=== PATIENT | female | born 1945 | race Caucasian/White ===

== ENCOUNTER 2017-06-21 07:01 | Outpatient (CLI) | payer MEDICARE, OTHER ==
[~2017-06-21] VITALS: Ht 149.9 cm; Wt 45.5 kg
--- NOTE | ~2017-06-21 | HEMODYNAMI ---
PATIENT:BRISEYDA METCALF MEDICAL RECORD: [id number] : 43 LOCATION:[address] [facility] [id number] ADMISSION DATE: 06/21/17 Generatedon:06/22/20178:57 Patient name: BRISEYDA METCALF Patient #: [id number] SSN: : 1945 Date of study: 06/22/2017 Page: Of Hemodynamic Procedure Report Patient Data Patient Demographics Procedure consent was obtained First Name: BRISEYDA Gender: Female Last Name: DIXON : 1945 Middle Initial: L Age: 72 year(s) Patient #: [id number] Race: Unknown Additional ID: [id number] Contact details [address]: [address] [place] [address] State: [place] City: [place] Zip code: [address] Past Medical History Allergies: No known allergies Admission Admission Data Admission Date: 06/21/2017 Admission Time: 15:04 Room #: D2118 Lab Results Lab Result Date: 06/22/2017 Lab Result Time: 0:00 Biochemistry Name Units Result Min Max BUN mg/dl 18 --(---*)-- 7 18 Creatinine mg/dl 1 --(--*-)-- 0.6 1.3 CBC Name Units Result Min Max Hemoglobin g/dl 11.8 *-(----)-- 13.5 17.5 Procedure Procedure Types Cath Procedure PCI Procedure Coronary Stent Initial x2 Miscellaneous Procedures Moderate Sedation up to 45 minutes Procedure Description Procedure Date Procedure Date: 06/22/2017 Procedure Start Time: 8:03 Procedure End Time: 8:48 Procedure Staff Name Function Doron Cornelius MD Performing Physician Kailyn Cottrell RT Scrub Arlyn Perkins RN Nurse Angelica Rivera RT Monitor Procedure Data Cath Procedure Fluoroscopy Diagnostic fluoroscopy Total fluoroscopy Time: 11 time: 11 min min Diagnostic fluoroscopy Total fluoroscopy dose: 385 dose: 385 mGy mGy Contrast Material Contrast Material Type Amount (ml) Isovue 300 79 Entry Location Entry Primary Successful Side Size Upsize Upsize Entry Closure Succes sful Closure Location (Fr) 1 (Fr) 2 (Fr) Remarks Device Remarks Femoral Right 6 Fr Exoseal artery Short Estimated blood loss: 5 ml Procedure Complications No complications Procedure Medications Medication Administration Route Dosage Oxygen NC 2 l/min Lidocaine 2% added to field 20 Heparin Flush Bag added to field 2 bags (1000units/500ml NS) 0.9% NaCl I.V. 100 ml/hr Angiomax (bolus) I.V. 7 ml Angiomax Drip I.V. drip 15.8 ml/hr (250mg/50ml NS) (Standard) Versed I.V. 1 mg Fentanyl I.V. 50 mcg Nitroglycerin IC/IA I.C. 150 mcg Angiomax Drip 15.8 ml/hr (250mg/50ml NS) (Standard) Hemodynamics Rest HGB: 11.8 (g/dl) Heart Rate: 56 (bpm) Snapshots Pre Cath Intra NCS Post Cath Vital Signs Time Heart Resp SPO2 etCO2 [id number] NIBP (mmHg) Rhythm Pain Sedation Rate (ipm) (%) (mmHg) (mmHg) Status Level (bpm) 7:52:37 57 20 98 0 0 156/68(126) NSR 0 (11) 10(A) , No pain 7:57:04 53 18 98 0 0 155/64(134) NSR 0 (11) 10(A) , No pain 8:01:28 58 19 99 0 0 138/70(113) NSR 0 (11) 10(A) , No pain 8:05:52 58 21 98 0 0 142/66(116) NSR 0 (11) 10(A) , No pain 8:10:10 56 20 99 0 0 141/70(118) NSR 0 (11) 9(A) , No pain 8:14:28 57 19 99 0 0 136/66(119) NSR 0 (11) 9(A) , No pain 8:18:42 58 20 99 0 0 152/69(122) NSR 0 (11) 9(A) , No pain 8:23:04 58 19 99 0 0 154/67(124) NSR 0 (11) 9(A) , No pain 8:27:27 56 20 99 0 0 147/67(112) NSR 0 (11) 9(A) , No pain 8:31:46 59 18 99 0 0 136/65(113) NSR 0 (11) 9(A) , No pain 8:36:02 63 19 98 0 0 130/67(99) NSR 0 (11) 9(A) , No pain 8:40:14 60 20 98 0 0 135/70(108) NSR 0 (11) 10(A) , No pain 8:44:30 57 20 98 0 0 140/67(119) NSR 0 (11) 10(A) , No pain 8:49:50 56 24 98 0 0 148/68(121) NSR 0 (11) 10(A) , No pain Medications Time Medication Route Dose Verified Delivered Reason N otes Effectiveness by by 7:51:21 Oxygen NC 2 Doron Buffie used for l/min Ashli Perkins RN procedure 7:51:32 Lidocaine 2% added to 20ml Doron Doron for local field vial Ashli Cornelius MD anesthetic 7:51:39 Heparin Flush added to 2 Doron Doron used for Bag field bags Ashli Cornelius MD procedure (1000units/500ml NS) 7:51:48 0.9% NaCl I.V. 100 Doron Buffie Per physician ml/hr Ashli Perkins RN, MD 8:00:23 Versed I.V. 1 mg Doron Buffie for sedation Ashli Perkins RN, MD 8:00:29 Fentanyl I.V. 50 Doron Buffie for sedation mcg Ashli Perkins RN, MD 8:08:15 Angiomax (bolus) I.V. 7 ml Doron Buffie for 2 50mg/50 Ashli Perkins RN anticoagulation ml 8:09:26 Angiomax Drip I.V. drip 15.8 Doron Buffie for (250mg/50ml NS) ml/hr Ashli Perkins RN anticoagulation (Standard) 8:35:13 Nitroglycerin I.C. 150 Doron Doron for IC/IA mcg Ashli Cornelius MD vasodilation 8:48:35 Angiomax Drip I.V. drip- 15.8 Doron Doron for (250mg/50ml NS) discontinued ml/hr Ashli Cornelius MD anticoagulation (Standard) Procedure Log Time Note 7:32:28 Arlyn Perkins RN sent for patient. Start room use. 7:32:29 Time tracking: Regular hours 7:32:33 Plan of Care:Hemodynamics will remain stable., Cardiac rhythm will remain stable., Comfort level will be maintained., Respiratory function will remain adequate., Patient/ family verbilizes understanding of procedure., Procedure tolerated without complication., Recovers from procedure without complications.. 7:44:04 Patient received from PCU to CCL 1 Alert and oriented. Tansferred to table in Supine position. 7:44:05 Warm blankets applied, and phillip hugger turned on for patient comfort. 7:44:06 Correct patient and procedure confirmed by team. 7:44:07 Signed procedure consent form obtained from patient. 7:44:08 ECG and BP/O2 sat monitors applied to patient. 7:44:08 Full Disclosure recording started 7:51:21 Oxygen 2 l/min NC was administered by Arlyn Perkins RN; used for procedure; 7:51:21 Vital chart was started 7:51:32 Lidocaine 2% 20ml vial added to field was administered by Doron Cornelius MD; for local anesthetic; 7:51:39 Heparin Flush Bag (1000units/500ml NS) 2 bags added to field was administered by Doron Cornelius MD; used for procedure; 7:51:48 0.9% NaCl 100 ml/hr I.V. was administered by Arlyn Perkins RN; Per physician; 7:52:11 Baseline sample Acquired. 7:52:16 Rhythm: sinus rhythm 7:52:22 H&P Date Dictated: 06/22/2017 Within 30 days and on chart.. 7:52:24 Pre-procedure instructions explained to patient. 7:52:25 Pre-op teaching completed and patient verbalized understanding. 7:52:27 Family in patients room. 7:57:28 Is the patient allergic to Iodine/contrast media? No. 7:57:29 Was the patient premedicated? No 7:57:30 Is patient on blood thinner?Yes 7:57:33 ACC The patient was administered the following blood thiners within the last 24 hours: ACCPlavix 7:57:37 Patient diabetic? No. 7:57:42 Previous problem with sedation/anesthesia? No ? 7:57:49 Snore? No 7:57:50 Sleep apnea? No 7:57:59 Deviated septum? No 7:58:00 Opens mouth fully? Yes 7:58:01 Sticks out tongue? Yes 7:58:03 Airway obstruction? No ? 7:58:08 Dentures? Yes in tight 7:58:11 Pre procedure: right dorsailis pedis pulse 1+ Palpable, but thready & weak; easily obliterated 7:58:15 Pre procedure: left dorsailis pedis pulse 1+ Palpable, but thready & weak; easily obliterated 7:58:18 Patient pain scale 0/10 ?. 7:58:23 IV patent on arrival in left forearm with 0.9% NaCl at [facility]. 7:58:39 Lab results completed and on chart. 7:58:43 Right groin area was prepped with chlora-prep and draped in sterile fashion 7:58:44 Alarms reviewed by R. N. 7:58:45 Sharps counted by scrub and verified by R.N. 7:58:46 Physician arrived 7:58:47 --------ALL STOP TIME OUT------ 7:58:47 Final Timeout: patient, procedure, and site verified with staff and physician. All members of the team are in agreement. 7:58:49 Right groin site verified by team. 7:58:53 Physical assessment completed. ASA score P 2 - A patient with mild systemic disease as per Doron Cornelius MD. 7:58:57 Sedation plan: IV Moderate Sedation Versed, Fentanyl 7:59:04 Use device set Femoral PCI 7:59:05 Acist Syringe opened to sterile field. 7:59:06 Acist Hand Control opened to sterile field. 7:59:06 Bag Decanter opened to sterile field. 7:59:07 Medline Cath Pack opened to sterile field. 7:59:10 Terumo 6Fr [place] Sheath opened to sterile field. 7:59:10 St Uday 260cm J .035 wire opened to sterile field. 7:59:11 Merit BasixCompak Inflation Kit opened to sterile field. 7:59:12 Acist Manifold opened to sterile field. 7:59:12 Tegaderm 4 x 4 opened to sterile field. 8:00:23 Versed 1 mg I.V. was administered by Arlyn Perkins RN; for sedation; 8:00:29 Fentanyl 50 mcg I.V. was administered by Arlyn Perkins RN; for sedation; 8:03:14 Procedure started. 8:03:22 Local anesthetic to right femoral artery with Lidocaine 2% by Doron Cornelius MD.INITIAL ACCESS ONLY 8:03:36 A 6 Fr Short sheath was inserted into the Right Femoral artery 8:04:21 [place] Playroll Choice PT Extra Support 182cm wire opened to sterile field. 8:05:22 Zero performed for pressure channel P1 8:05:26 Zero performed for pressure channel P1 8:07:50 [place] Playroll Runway 6Fr ART 3.5 SH guide catheter opened to sterile field. 8:08:15 Angiomax (bolus) 7 ml I.V. was administered by Arlyn Perkins RN; for anticoagulation; 250mg/50 ml 8::26 Angiomax Drip (250mg/50ml NS) (Standard) 15.8 ml/hr I.V. drip was administered by Arlyn Perkins RN; for anticoagulation; 8:11:17 6 Fr art 3.5 sh guide catheter was inserted over the wire 8::21 RCA angiography performed. 8::26 Injector settings: Ml/sec: 3, Volume: 6, 8:11:34 choice pt wire advanced. 8:13:00 Wire advanced across lesion. 8:17:23 Inflation Number: 1 A [place]land RX 2.25 x 18 stent was prepped and advanced across the Mid RCA. The stent was deployed at 16 SHARITA for 0:10 (min:sec). 8:19:43 Stent catheter was removed intact over wire. 8:21:13 Inflation number: 2 A NC Euphora 2.5 x 12 balloon was prepped and advanced across the Mid RCA, then inflated to 16 SHARITA for 0:10 (min:sec). 8:21:53 Balloon removed over the wire. 8:25:05 Cordis 6FR XBLAD 3.5 guide catheter opened to sterile field. 8:25:06 Shah BMW [place] 2 J-tip 300cm 0.014 guide wir opened to sterile field. 8:25:19 Wire removed. 8:25:19 Guide catheter removed. 8:25:41 6 Fr xblad 3.5 guide catheter was inserted over the wire 8:28:25 LCA angiography performed. 8::28 Injector settings: Ml/sec: 3, Volume: 6, 8:28:35 bmw wire advanced. 8:32:56 Wire advanced across lesion. 8:35:13 Nitroglycerin IC/IA 150 mcg I.C. was administered by Doron Cornelius MD; for vasodilation; 8:36:59 Inflation number: 1 A Euphora 2.0 x 30 Balloon was prepped and advanced across the Prox LAD, then inflated to 10 SHARITA for 0:10 (min:sec). 8:37:13 Inflation number: 2 The Euphora 2.0 x 30 Balloon was reinflated across the Prox LAD, to 10 SHARITA for 0:10 (min:sec). 8:40:58 Balloon removed over the wire. 8:42:49 Inflation Number: 3 A Theo RX 2.5 x 26 stent was prepped and advanced across the Prox LAD. The stent was deployed at 12 SHARITA for 0:10 (min:sec). 8:44:04 Stent catheter was removed intact over wire. 8:44:08 Wire removed. 8:45:01 Guide catheter removed. 8:45:10 Cordis 6Fr Exoseal opened to sterile field. 8:45:22 Sheath removed intact; hemostasis achieved with Exoseal to the Right Femoral artery. 8:45:24 Procedure ended.(Physican Out) 8:46:41 Fluoroscopy time 11.00 minutes. 8:46:45 Fluoroscopy dose: 385 mGy 8:46:45 Flurop Dose total: 385 8:46:51 Contrast amount:Isovue 300 79ml. 8:46:53 Sharps counted by scrub and verified by R.N. 8:47:00 Insertion/operative site no bleeding no hematoma. 8:47:04 Post-op/insertion site Right Femoral artery dressed using a 4 x 4 and Tegaderm. 8:47:07 Post right femoral artery:stable 8:47:08 Post Procedure Pulses reassessed and unchanged 8:47:11 Post procedure rhythm: unchanged. 8:47:14 Estimated blood loss: 5 ml 8:47:15 Post procedure instruction explained to patient.Patient verbalizes understanding. 8:47:16 Patient needs reinforcement of post procedure teaching. 8:47:47 Procedure type changed to Cath procedure, PCI procedure, Coronary Stent Initial x2, Miscellaneous Procedures, Moderate Sedation up to 45 minutes 8:47:49 Procedure and supply charges have been captured, reviewed, submitted and are correct. 8:47:53 Procedure Complication : No complications 8:47:57 Vital chart was stopped 8:47:57 See physician's report for complete and final results. 8:48:35 Angiomax Drip (250mg/50ml NS) (Standard) 15.8 ml/hr I.V. drip- discontinued was administered by Doron Cornelius MD; for anticoagulation; 8:48:38 Report given to [facility]. 8:48:42 Patient transfered to [facility] with Stretcher. 8:48:44 Procedure ended. 8:48:44 Full Disclosure recording stopped 8:48:50 ACC-PCI Only Patient was given prescriptions, or instructed by Doron Cornelius MD to start/continue the following medications upon discharge: Plavix 8:48:52 End room use (Document Last) 8:49:57 Cook 18G 7cm Percutaneous Entry needle opened to sterile field. 8:55:57 Lab Result : Hemoglobin 11.8 g/dl 8:55:57 Lab Result : Creatinine 1 mg/dl 8:55:57 Lab Result : BUN 18 mg/dl 8:55:57 Hemodynamic formulas in Rest were re-calculated based on hemoglobin value from 06/22/2017 12:00:00 AM Intervention Summary Intervention Notes Time ActionType Lesion and Equipment Action# Pressure Duration Attributes Used 8:17:23 Place stent Mid RCA Rockland RX 1 16 00:10 2.25 x 18 stent 8:21:13 Inflate Mid RCA NC 2 16 00:10 balloon Euphora 2.5 x 12 balloon 8:36:59 Inflate Prox LAD Euphora 1 10 00:10 balloon 2.0 x 30 Balloon 8:37:13 Reinflate Prox LAD Euphora 2 10 00:10 balloon 2.0 x 30 Ball[address] 8:42:49 Place stent Prox LAD Rockland RX 3 12 00:10 2.5 x 26 stent Device Usage Item Name Manufacture Quantity Catalog Number Hospital Part Current Min imal Lot# / Charge Number Stock Stock Serial# Code Acist Acist 1 [id number] 071850 668193 20 Syringe Medical Systems Inc Acist Hand Acist 1 72209 447596 536533 207841 5 Control Social [employer] Systems DataPop Bag Decanter Microtek 1 2002S 740084 15790 730189 5 Scyron. Medline Cath Cardinal 1 [id number] 812150 34991 043921 5 Pack Health Terumo 6Fr Terumo 1 [id number] 204463 518352 871841 [address] [place] [address] St Uday 1 [id number] 271524 768067 241368 30 260cm J .035 wire [facility] 1 [id number] 935940 815267 627458 15 CipherApps Medical Inflation Kit Acist Acist 1 67054 923958 296957 060066 5 Omega Diagnostics Systems Inc Tegaderm 4 x 3M 1 [id number] 049792 972770 198991 5 4 [place] Sci [place] 1 [id number] 249970 648696 863073 5 Choice PT Scientific Extra Support 182cm wire [place] Sci [place] 1 [id number] 442340 558609 844717 [address] 6Fr Scientific ART 3.5 SH guide catheter Theo RX 2.25 Medtronic 1 [id number] 868631 0199367 488396 5 [id number] x 18 stent NC Euphora Medtronic 1 [id number] 757151 345958 388722 1 [id number] 2.5 x 12 balloon Cordis 6FR Cardinal 1 [id number] 959059 600394 499140 10 XBLAD 3.5 Health guide catheter Shah BMW Shah 1 [id number] 735366 105236 303238 5 [place] 2 Vascular J-tip 300cm 0.014 guide wir Euphora 2.0 Medtronic 1 [id number] 442087 105974 654797 5 [id number] x 30 Balloon Theo RX 2.5 Medtronic 1 [id number] 982422 6359446 862357 5 [id number] x 26 stent Cordis 6Fr Cardinal 1 [id number] 333039 059680 136790 10 Bladder [employer] 18G 7cm [facility] 1 [id number] 723463 12540 282750 5 Percutaneous Entry needle Signature Audit [place] Stage Time Signature Unsigned Intra-Procedure 06/22/2017 Angelica Rivera 8:56:57 AM RT(R) Signatures Monitor : Angeliac Rivera RT Signature : Date : Time : [facility] [address] [place] [address]
--- NOTE | ~2017-06-21 | HEMODYNAMI ---
PATIENT:BRISEYDA METCALF MEDICAL RECORD: [id number] : 43 LOCATION:D.CAT ADMISSION DATE: 06/21/17 Generatedon:06/21/20179:37 Patient name: BRISEYDA METCALF Patient #: [id number] SSN: : 1945 Date of study: 06/21/2017 Page: Of Hemodynamic Procedure Report Patient Data Patient Demographics Procedure consent was obtained First Name: BRISEYDA Gender: Female Last Name: DIXON : 1945 [facility] Initial: L Age: 72 year(s) Patient #: [id number] Race: Unknown Additional ID: [id number] Contact details [address]: [address] [place] [address] State: [place] City: [place] Zip code: [address] Past Medical History Allergies: No known allergies Admission Admission Data Admission Date: 06/21/2017 Admission Time: 7:01 Lab Results Lab Result Date: 06/21/2017 Lab Result Time: 0:00 Biochemistry Name Units Result Min Max Creatinine mg/dl 1 --(--*-)-- 0.6 1.3 CBC Name Units Result Min Max Hemoglobin g/dl 12.9 -*(----)-- 13.5 17.5 Procedure Procedure Types Cath Procedure Diagnostic Procedure [facility] LH w/Coronaries Peripheral Cath Diagnostic Procedure Cath Peripheral Four Vessel Arteriogram Renal Arteriogram Procedure Description Procedure Date Procedure Date: 06/21/2017 Procedure Start Time: 9:08 Procedure End Time: 9:37 Procedure Staff Name Function Doron Cornelius MD Performing Physician Gabriella Rocha RT Scrub Dilan Mooney RT Scrub Miguel Johnson RN Nurse Kailyn Cottrell RT Monitor Procedure Data Cath Procedure Fluoroscopy Diagnostic fluoroscopy Total fluoroscopy Time: 4.8 time: 4.8 min min Diagnostic fluoroscopy Total fluoroscopy dose: 222 dose: 222 mGy mGy Contrast Material Contrast Material Type Amount (ml) Isovue 300 85 Entry Location Entry Primary Successful Side Size Upsize Upsize Entry Closure Succes sful Closure Location (Fr) 1 (Fr) 2 (Fr) Remarks Device Remarks Femoral Right 5 Fr Exoseal artery Estimated blood loss: 5 ml Diagnostic catheters Device Type Used For End Catheter Placement Cordis 5Fr JL 4.0 Left Coronary Catheter (MP) Angiography Cordis 5Fr 3DRC Catheter Right Coronary (MP) Angiography Cordis 5Fr 3DRC Catheter Cervical carotid (MP) (common) arteriography Cordis 5Fr 3DRC Catheter Cervical carotid (MP) (common) arteriography Cordis 5Fr 3DRC Catheter Vertebral (neck (MP) and/or head) arteriography Cordis 5Fr 3DRC Catheter Renal (MP) arteriography without flush -selective Cordis 5Fr 3DRC Catheter Renal (MP) arteriography without flush -selective Cordis 5Fr Pigtail LV Angiography Catheter (MP) Procedure Complications No complications Procedure Medications Medication Administration Route Dosage 0.9% NaCl I.V. 100 ml/hr Oxygen NC 2 l/min Heparin Flush Bag added to field 2 bags (1000units/500ml NS) Lidocaine 2% added to field 20 Versed I.V. 1 mg Hemodynamics Rest HGB: 12.9 (g/dl) Heart Rate: 66 (bpm) Pressure Samples Time Site Value (mmHg) Purpose Heart Use Rate(bpm) 9:27 LV 153/-6,16 EDP 65 Gradients Valve Time Site Site Mean SEP/DFP Peak To Heart Use 1 2 (mmHg) (sec/min) Peak Rate (mmHg) (bpm) Aortic 9:28 LV AO 67 Snapshots Pre Cath Intra NCS Post Cath Vital Signs Time Heart Resp SPO2 etCO2 VO6nacq NIBP (mmHg) Rhythm Pain Sedation Rate (ipm) (%) (mmHg) (mmHg) Status Level (bpm) 8:59:11 66 15 100 0 0 173/78(139) NSR 0 (11) 10(A) , No pain 9:03:35 65 19 100 0 0 166/76(140) NSR 0 (11) 10(A) , No pain 9:07:55 63 21 100 0 0 163/74(132) NSR 0 (11) 10(A) , No pain 9:12:13 66 20 100 0 0 155/78(117) NSR 0 (11) 9(A) , No pain 9:16:35 68 19 100 0 0 153/76(126) NSR 0 (11) 9(A) , No pain 9:20:53 66 14 100 0 0 153/68(134) NSR 0 (11) 9(A) , No pain 9:25:11 66 21 100 0 0 145/68(117) NSR 0 (11) 9(A) , No pain 9:29:25 67 22 100 0 0 149/70(124) NSR 0 (11) 9(A) , No pain 9:34:37 66 25 100 0 0 154/82(129) NSR 0 (11) 9(A) , No pain Medications Time Medication Route Dose Verified Delivered Reason Notes Ef fectiveness by by 8:58:01 0.9% NaCl I.V. 100ml/hr Miguel Miguel Per Elizabeth Johnson physician RN RN 8:58:32 Oxygen NC 2 l/min Miguel Miguel Per Lorigan Lorigan physician RN RN 8:58:53 Heparin Flush added 2 bags Miguel Miguel used for Bag to Lorigan Elizabeth procedure (1000units/500ml field RN RN NS) 8:59:20 Lidocaine 2% added 20ml Miguel Miguel for local to vial Lorigan Lorigan anesthetic field RN RN 9:07:10 Versed I.V. 1 mg Miguel Miguel for Lorigan Lorigan sedation RN web content writer Log Time Note 8:45:13 Dilan FRANCOIS(R) sent for patient. Start room use. 8:50:18 Time tracking: Regular hours 8:50:22 Plan of Care:Hemodynamics will remain stable., Cardiac rhythm will remain stable., Comfort level will be maintained., Respiratory function will remain adequate., Patient/ family verbilizes understanding of procedure., Procedure tolerated without complication., Recovers from procedure without complications.. 8:50:26 Patient received from Pre/Post Procedure Room to CCL 1 Alert and oriented. Tansferred to table in Supine position. 8:50:28 Warm blankets applied, and phillip hugger turned on for patient comfort. 8:50:28 Correct patient and procedure confirmed by team. 8:50:31 Signed procedure consent form obtained from patient. 8:50:32 ECG and BP/O2 sat monitors applied to patient. 8:50:32 Full Disclosure recording started 8:51:22 Procedure type changed to Cath procedure, Diagnostic procedure, LHC, LHC w/Coronaries, Peripheral Cath Diagnostic Procedure, Cath Peripheral, Four Vessel Arteriogram, Renal Arteriogram 8:51:46 Rhythm: sinus rhythm 8:52:01 H&P Date Dictated: 06/20/2017 Within 30 days and on chart., H&P Addendum completed by physician on day of procedure. (MUST COMPLETE FOR ALL OUTPATIENTS). 8:52:02 Pre-procedure instructions explained to patient. 8:52:02 Pre-op teaching completed and patient verbalized understanding. 8:52:03 Family in waiting room. 8:52:06 Patient NPO since Midnight. 8:52:14 Patient allergic to No known allergies 8:52:16 Is the patient allergic to Iodine/contrast media? No. 8:52:17 Is patient on blood thinner?Yes 8:52:19 ACC The patient was administered the following blood thiners within the last 24 hours: ACCPlavix 8:52:21 Patient diabetic? No. 8:52:25 Previous problem with sedation/anesthesia? No ? 8:52:29 Snore? No 8:52:30 Sleep apnea? No 8:52:31 Deviated septum? No 8:52:32 Opens mouth fully? Yes 8:52:33 Sticks out tongue? Yes 8:52:35 Airway obstruction? No ? 8:52:36 Dentures? No ? 8:52:39 Pre procedure: right dorsailis pedis pulse 2+ Normal; easily identifiable; not easily obliterated 8:52:41 Patient pain scale 0/10 ?. 8:52:46 IV patent on arrival in left hand with 0.9% NaCl at KVO. 8:53:11 Lab Result : Creatinine 1 mg/dl 8:53:11 Lab Result : Hemoglobin 12.9 g/dl 8:53:14 Lab results completed and on chart. 8:53:18 Right groin area was prepped with chlora-prep and draped in sterile fashion 8:53:19 Alarms reviewed by R. N. 8:53:19 Sharps counted by scrub and verified by R.N. 8:53:24 Use device set Femoral Dx 8:53:25 Acist Syringe opened to sterile field. 8:53:25 Bag Decanter opened to sterile field. 8:53:26 Medline Cath Pack opened to sterile field. 8:53:26 Terumo 5Fr Benedict Sheath opened to sterile field. 8:53:27 St Uday 260cm J .035 wire opened to sterile field. 8:53:28 Acist Hand Control opened to sterile field. 8:53:28 Acist Manifold opened to sterile field. 8:53:29 Diagnostic Infinity 5Fr Multipack catheter opened to sterile field. 8:53:29 Tegaderm 4 x 4 opened to sterile field. 8:56:27 Vital chart was started 8:58:01 0.9% NaCl 100ml/hr I.V. was administered by Miguel Johnson RN; Per physician; 8:58:32 Oxygen 2 l/min NC was administered by Miguel Johnson RN; Per physician; 8:58:53 Heparin Flush Bag (1000units/500ml NS) 2 bags added to field was administered by Miguel Johnson RN; used for procedure; 8:59:20 Lidocaine 2% 20ml vial added to field was administered by Miguel Johnson RN; for local anesthetic; 8:59:56 Baseline sample Acquired. 9:03:18 Final Timeout: patient, procedure, and site verified with staff and physician. All members of the team are in agreement. 9:03:20 Right groin site verified by team. 9:03:23 Physical assessment completed. ASA score P 2 - A patient with mild systemic disease as per Doron Cornelius MD. 9:03:25 Sedation plan: IV Moderate Sedation Versed, Fentanyl 9:05:33 Zero performed for pressure channel P1 9:07:10 Versed 1 mg I.V. was administered by Miguel Johnson RN; for sedation; 9:08:13 Procedure started. 9:08:19 Local anesthetic to right femoral artery with Lidocaine 2% by Doron Cornelius MD.INITIAL ACCESS ONLY 9:10:06 A 5 Fr sheath was inserted into the Right Femoral artery 9:10:13 Cook 4Fr Micropuncture ([id number]) opened to sterile field. 9:12:07 A Cordis 5Fr JL 4.0 Catheter (MP) was advanced over the wire and used for Left Coronary Angiography. 9:15:05 Catheter exchanged over wire. 9:16:40 A Cordis 5Fr 3DRC Catheter (MP) was advanced over the wire and used for Right Coronary Angiography. 9:17:40 A Cordis 5Fr 3DRC Catheter (MP) was advanced over the wire and used for Cervical carotid (common) arteriography.Right--Selective 9:22:32 A Cordis 5Fr 3DRC Catheter (MP) was advanced over the wire and used for Cervical carotid (common) arteriography.Left--Selective 9:24:33 A Cordis 5Fr 3DRC Catheter (MP) was advanced over the wire and used for Vertebral (neck and/or head) arteriography.Left subclavian 9:25:26 A Cordis 5Fr 3DRC Catheter (MP) was advanced over the wire and used for Renal arteriography without flush -selective.Left 9:25:38 A Cordis 5Fr 3DRC Catheter (MP) was advanced over the wire and used for Renal arteriography without flush -selective.Right 9:25:57 Catheter exchanged over wire. 9:26:21 A Cordis 5Fr Pigtail Catheter (MP) was advanced over the wire and used for LV Angiography. 9:27:47 LV gram done using PHAM 9:27:48 LV hemodynamics recorded. 9:27:52 Injector settings: Ml/sec: 12, Volume: 8, 9:28:27 Catheter removed. 9:30:36 Sheath removed intact; hemostasis achieved with Exoseal to the Right Femoral artery. 9:30:37 Procedure ended.(Physican Out) 9:30:51 Cordis 5Fr Exoseal opened to sterile field. 9:31:02 Fluoroscopy time 04.80 minutes. 9:31:06 Fluoroscopy dose: 222 mGy 9:31:06 Flurop Dose total: 222 9:31:10 Contrast amount:Isovue 300 85ml. 9:31:11 Sharps counted by scrub and verified by R.N. 9:31:13 Insertion/operative site no bleeding no hematoma. 9:31:15 Post-op/insertion site Right Femoral artery dressed using a 4 x 4 and Tegaderm. 9:31:18 Post right femoral artery:stable, clean and dry 9:31:20 Post Procedure Pulses reassessed and unchanged 9:31:25 Post-procedure physical assessment completed. ASA score P 2 - A patient with mild systemic disease as per Doron Cornelius MD. 9:32:22 Post procedure rhythm: unchanged. 9:32:28 Estimated blood loss: 5 ml 9:32:29 Post procedure instruction explained to patient.Patient verbalizes understanding. 9:32:31 Patient needs reinforcement of post procedure teaching. 9:32:39 Procedure Complication : No complications 9:32:45 See physician's report for complete and final results. 9:34:13 Procedure and supply charges have been captured, reviewed, submitted and are correct. 9:37:08 Vital chart was stopped 9:37:10 Report given to Pre/Post Procedure Room. 9:37:12 Patient transfered to Pre/Post Procedure Room with Stretcher. 9:37:23 Procedure ended. 9:37:23 Full Disclosure recording stopped 9:37:26 End room use (Document Last) Device Usage Item Name Manufacture Quantity Catalog Hospital Part Current Minimal Lot# / Number Charge Number Stock Stock Serial# Code Acist Syringe Acist 1 [id number] 039142 028055 058735 20 [employer] Bag Decanter Microtek 1 2002S 272364 41591 154745 5 [employer] Inc. Medline Cath Cardinal 1 [id number] 054967 50485 084471 5 Pack Health Terumo 5Fr Terumo 1 [id number] 584904 993739 093521 [address] Uday [address] Uday 1 689271 635402 202909 657565 30 J .035 wire Acist Hand Acist 1 52379 824646 378149 928188 5 Control [employer] Inc Acist Acist 1 08682 604435 935075 389299 5 Manifold [employer] Inc Diagnostic Cardinal 1 [id number] 788583 48276 265153 30 Infinity 5Fr Health Multipack catheter Tegaderm 4 x 3M 1 1626W 661283 316047 877938 5 4 Cook 4Fr Cook Medical 1 [id number] 551254 435822 738193 5 Micropuncture ([id number]) Cordis 5Fr JL Cardinal 1 [id number] 5 4.0 Catheter Health (MP) Cordis 5Fr Cardinal 1 [id number] 5 3DRC Catheter Health (MP) Cordis 5Fr Cardinal 1 [id number] 5 Pigtail Health Catheter (MP) Cordis 5Fr Cardinal 1 EX500 165068 478390 541295 10 BIG Launcher Signature Audit [place] Stage Time Signature Unsigned Intra-Procedure 06/21/2017 Kailyn 9:37:37 AM Counts RT(R) Signatures Monitor : Kailyn Signature : Counts RT Date : Time : [address] [place] [address]
[2017-06-21] MEDS ORDERED: KLONOPIN1 MG PO (07:04)
[2017-06-21] MEDS ORDERED: BAYER CHEWABLE81 MG PO (07:04)
[2017-06-21] MEDS ORDERED: PLAVIX75 MG PO (07:04)
[2017-06-21] MEDS ORDERED: NITROQUICK0.4 MG SL (07:05)
[2017-06-21 07:20] VITALS: BP 133/53; BMI 20.2
[2017-06-21 07:40] LABS: BASOPHILS 0.2 % (0-2); EOSINOPHILS 0.5 % (0-7); HEMATOCRIT 38.2 % (36.0-48.0); HEMOGLOBIN 12.9 g/dL (12-16); IMMATURE GRANULOCYTES 0.2 % (0-5); LYMPHOCYTES 21.7 % (15-50); MCH 29.7 pg (26.0-34.0); MCHC 33.8 g/dL (31.0-37.0); MCV 87.8 fL (80.0-100.0); MEAN PLATELET VOLUME 9.2 fL (7.4-10.4); MONOCYTES 9.2 % (2-11); NEUTROPHILS 68.2 % (40-80); PLATELET COUNT 269 10x3/uL (130-400); RBC 4.35 10x6/uL (4.00-5.40); RDW 14.1 % (11.5-14.5); WBC 9.7 10x3/uL (4.8-10.8)
[2017-06-21 07:52] LABS: ANION GAP 14.5 mmol/L (8-16); CALCIUM 8.9 mg/dL (8.5-10.1); CARBON DIOXIDE 26.3 mmol/L (21.0-32.0); POTASSIUM - SERUM 4.8 mmol/L (3.5-5.1)
--- NOTE | 2017-06-21 10:00 | NUR ---
0945 RECIEVED TO ROOM VIA STRETCHER FROM TALKBACK HOST WITH 5 FR EXOSEAL R/GROIN CDI NO BLEEDING NO HEMATOMA NOTED. DR CURRIE PRESENT SPEAKING TO FAMILY WITH DR SIMMONS CONSULTED. VSS WITH CHEST PAIN DENIED
--- NOTE | 2017-06-21 10:03 | NUR ---
BLOOD NOTED TO R/GROIN WITH DRESSING SATURATED NO HEMATOMA. PRESSURE HELD X 5 MINUTES
--- NOTE | 2017-06-21 10:09 | NUR ---
DRESSING CHANGED TO R/GROIN WITH NO BLEEDING NOTED. INSTRUCTED PATIENT TO KEEP HEAD FLAT ON PILLOW WITH RLE STRAIGHT WILL MONITOR
--- NOTE | 2017-06-21 10:35 | NUR ---
REPORT CALLED TO [facility]DIS[facility] WITH PATIENT TRANSPORTED VIA STRETCHER TO ROOM 6653. R/GROIN CDI NO BLEEDING NO HEMATOMA NOTED.
[2017-06-21 10:51] VITALS: BP 154/73; Ht 149.9 cm; Wt 45.5 kg
[2017-06-21 16:00] VITALS: BP 126/66
--- NOTE | 2017-06-21 18:24 | NUR ---
WITHOUT CHANGES OR DISTRESS NOTED AT THIS TIME. DENIES NEEDS.
[2017-06-21 18:49] LABS: BASOPHILS 0.2 % (0-2); EOSINOPHILS 0.7 % (0-7); HEMOGLOBIN 11.8 g/dL (12-16); IMMATURE GRANULOCYTES 0.1 % (0-5); LYMPHOCYTES 30.3 % (15-50); MCH 28.9 pg (26.0-34.0); MCHC 32.8 g/dL (31.0-37.0); MCV 88.2 fL (80.0-100.0); MEAN PLATELET VOLUME 9.3 fL (7.4-10.4); MONOCYTES 8.8 % (2-11); NEUTROPHILS 59.9 % (40-80); PLATELET COUNT 279 10x3/uL (130-400); RBC 4.08 10x6/uL (4.00-5.40); RDW 14.4 % (11.5-14.5); WBC 8.3 10x3/uL (4.8-10.8)
[2017-06-21 18:54] LABS: ANION GAP 10.6 mmol/L (8-16); CALCIUM 8.9 mg/dL (8.5-10.1); CARBON DIOXIDE 27.7 mmol/L (21.0-32.0); POTASSIUM - SERUM 4.3 mmol/L (3.5-5.1)
--- NOTE | 2017-06-21 19:00 | NUR ---
RECEIVED REPORT AND ASSUMED PT CARE FROM DAY SHIFT NURSE @ THIS TIME.
[2017-06-21 20:00] VITALS: BP 118/59
--- NOTE | 2017-06-21 20:00 | NUR ---
INITIAL ASSESSMENT COMPLETED, VSS, AFEBRILE. NSR ON MONITOR, HR 60'S. DENIES ANY C/O PAIN. RIGHT GROIN PUNCTURE SITE, C/D/I. CALL LIGHT WITHIN REACH. NO NEEDS VOICED. WILL MONITOR.
[2017-06-22 00:03] VITALS: BP 105/55
--- NOTE | 2017-06-22 00:07 | NUR ---
ASSESSMENT UNCHANGED. VSS, AFEBRILE. RESP EVEN UNLABORED. NO NEEDS VOICED. WILL CONT TO MONITOR.
[2017-06-22 03:59] VITALS: BP 128/63
--- NOTE | 2017-06-22 07:30 | NUR ---
RESTING QUIETLY RESP UNLABORED NAD NOTED DENIES ANY NEEDS OR DISCOMFORT AT THIS TIME NAD NOTED
[2017-06-22 07:49] VITALS: BP 116/56
--- NOTE | 2017-06-22 08:03 | NUR ---
PT TO PROGRAM ADVOCATE VIA BED
--- NOTE | 2017-06-22 09:00 | NUR ---
RECEIVED PT BACK TO ROOM VSS DRSG TO RT GROIN C/D/I PPPX4 RESP UNLABORED NAD NOTED
--- NOTE | 2017-06-22 10:30 | NUR ---
FEMSTOP DCD PRESSURE DRSG APPLIED NO BLEEDING NOTED PPPX4
[2017-06-22 15:21] VITALS: BP 122/58
--- NOTE | 2017-06-22 17:04 | NUR ---
RECEIVED ORDER FROM DR CURRIE TO HOLD DISCHARGE UNTIL AM
[2017-06-22 19:00] VITALS: BP 120/57
[2017-06-23] VITALS: BP 117/55
[2017-06-23 04:00] VITALS: BP 140/61
--- NOTE | 2017-06-23 07:30 | NUR ---
RECEIVED PT IN BED AAOX4 RESP UNLABORED DENIES ANY NEEDS OR DISCOMFORT AT THIS TIME NAD NOTED
[2017-06-23 08:26] VITALS: BP 105/43
[2017-06-23] MEDS ORDERED: LOPRESSOR25 MG PO (09:18)
[2017-06-23] MEDS ORDERED: LIPITOR20 MG PO (09:18)
[2017-06-23] MEDS ORDERED: ASPIRIN325 MG PO (09:20)
--- NOTE | 2017-06-23 10:25 | NUR ---
REVIEWED DISCHARGE INSTRUCTIONS PT STATES UNDERSTANDING COPY GIVEN SALINE LOCK DCD TO LFA WITH IV CATHETER INTACT SITE FREE OF REDNESS OR EDEMA PT DISCHARGED HOME LEFT VIA W/C IN STABLE CONDITION WITH ALL PERSONAL BELONGINGS
== END 2017-06-23 10:25 | disposition home or self-care (01) ==
LOC: OBSVTIME → D.M2 07:01 → D.CATH 07:01 → D.M2 10:35 → D.CATH 15:00 → D.M2 15:04 → OBSVTIME 15:04 → D.CATH 15:04 → D.M2 06-23 10:25 → D.CATH 06-23 10:25
PROVIDERS: Internal Medicine Cardiovascular Disease
DX: I25.110 Atherosclerotic heart disease of native coronary artery with unstable angina pectoris (principal); I70.1 Atherosclerosis of renal artery; I77.1 Stricture of artery; R09.89 Other specified symptoms and signs involving the circulatory and respiratory systems; I10 Essential (primary) hypertension; Z72.0 Tobacco use
CPT/HCPCS: 36222; 36225; 93458; C9600 ×2

== ENCOUNTER → 2017-08-08 16:20 | Outpatient (CLI) | payer MEDICARE, OTHER ==
[2017-06-21 10:51] VITALS: BMI 20.2
[~2017-08-08 16:20] MED LIST: ASPIRIN325 MG PO; BAYER CHEWABLE81 MG PO; KLONOPIN1 MG PO; LIPITOR20 MG PO; LOPRESSOR25 MG PO; NITROQUICK0.4 MG SL; PLAVIX75 MG PO
[2017-08-08 16:45] LABS: CHOL - HDL RATIO 3.1 ratio (2.3-4.1); LDL-HDL RATIO 1.8 ratio (1.5-3.5)
== END | disposition home or self-care (01) ==
LOC: D.LABREF 16:20
PROVIDERS: Internal Medicine Cardiovascular Disease
DX: E78.5 Hyperlipidemia, unspecified (principal)